=== PATIENT | female | born 1980 | race Caucasian/White ===

== ENCOUNTER 2016-10-26 16:58 | Emergency (ER) | payer OTHER ==
[~2016-10-26] VITALS: Ht 162.6 cm; Wt 73.6 kg
[~2016-10-26 16:58] MED LIST: ALBUTEROL2.5 MG/3 M INH; AMOXICILLIN500 MG PO; DOXYCYCLINE HYC50 MG PO; GUAIATUSSIN AC10 ML PO; HYDROCODON-ACE1 EAC8 PO; PROPRANOLOL HCL20 MG PO; ROBAXIN500 MG PO
== END 2016-10-26 17:17 | disposition home or self-care (01) ==
LOC: ED 16:58
DX: Z00.8 Encounter for other general examination (principal)

== ENCOUNTER 2017-01-01 23:40 | Emergency (ER) | payer OTHER ==
[~2017-01-01] VITALS: Ht 162.6 cm; Wt 70.3 kg
== END 2017-01-02 00:04 | disposition home or self-care (01) ==
LOC: ED 23:40
DX: T63.441A Toxic effect of venom of bees, accidental (unintentional), initial encounter (principal); M79.7 Fibromyalgia; F17.200 Nicotine dependence, unspecified, uncomplicated; Z90.89 Acquired absence of other organs; Z88.5 Allergy status to narcotic agent; Z88.6 Allergy status to analgesic agent; Z79.899 Other long term (current) drug therapy
CPT/HCPCS: 99282; Q0163

== ENCOUNTER 2017-06-16 08:50 | Day surgery (SDC) | payer OTHER ==
[~2017-06-16] VITALS: Ht 162.6 cm; Wt 70.3 kg
--- NOTE | 2017-06-16 13:37 | NUR ---
06/16/17 Sania7 Sweetie Avendano 1333-PATIENT ARRIVED TO PACU ON 6L MASK O2 SAT 100% PATIENT NONAROUSABLE. DRESSING TO UMBILICAL SITE CDI ICE APPLIED. SR
--- NOTE | 2017-06-16 14:50 | NUR ---
1440 PT ARRIVED FROM PACU AWAKE AND ASKED FOR HER PHONE. PT REPORTED PAIN 7/10 AND TOLERABLE AT THIS TIME. PLACED WATER AT BEDSIDE, CALL LIGHT WITHIN REACH. SCD'S ON.
--- NOTE | 2017-06-16 15:49 | NUR ---
PATIENT TOLERATED PUDDING AND WATER. C/O PAIN 01/01. MEDICATED WITH 2 TABS OF NORCO. AND CHILD IN ROOM. CALL LIGHT WITHIN REACH. SCDs ON.
--- NOTE | 2017-06-21 06:10 | OR ---
[facility] [address] [place], [place] [address] Signed DATE OF OPERATION: 06/16/2017 SURGEON: Jeannie Pedraza MD PREOPERATIVE DIAGNOSIS: Umbilical hernia (12 mm). POSTOPERATIVE DIAGNOSIS: Umbilical hernia (12 mm). PROCEDURE: Umbilical herniorrhaphy with intraabdominal Ventralex mesh (6.4 cm). ESTIMATED BLOOD LOSS: None. INDICATIONS: Jolly is a 37-year-old female, who was asked to see me for her umbilical hernia. She has had trouble last six years since the of her last son, Spencer. She said it was easy to push in and out initially, but now it has become more and more difficult. She said when it is stuck, the pain is an 8/10. She finally went to her primary care provider, who asked her to come see me and have it repaired. I gave Jolly a booklet in the office on hernias. We looked at the nature of her umbilical hernia. She understands the difference between the primary suture repair and a mesh repair. There is risk to surgery including, not limited to bleeding, infection, scarring, change in contour of the skin, damage to bowel, infection of mesh, requiring removal, recurrent hernias, and chronic pain. She has expressed understanding and wishes to proceed. PROCEDURE NOTE: Jolly was taken into our operating room and placed in a supine position under general endotracheal tube anesthesia. She was given preoperative antibiotics along with subcutaneous heparin. SCDs were utilized. She was then prepped and draped in the usual sterile fashion. We used the infraumbilical curvilinear incision and carried that down through the tissue bluntly and with the cautery. We excised the hernia sac from the fascial defect and passed it off the field. The fat was reduced into the abdomen. After this, we chose our 6.4 cm round Ventralex mesh and placed that into the abdominal cavity and brought up flushed against the posterior abdominal wall. The fascial defect was closed transversely with a running #1 Prolene suture. Several passes of the suture went through the tab on the mesh to help hold it in place. The tab was then cut flush with the fascia and discarded. Local anesthetic was then copiously injected into the Electronically Signed By: JEANNIE PEDRAZA MD 06/21/17 0610 PATIENT NAME: JOLLY BALL OPERATIVE REPORT DATE OF : 80 REPORT #: [id number] PHYSICIAN: JEANNIE PEDRAZA MD PCP: BERENICE MOYER NP REPORT IS CONFIDENTIAL AND NOT TO BE RELEASED WITHOUT AUTHORIZATION [facility] [address] [place], [place] [address] Signed abdominal wall and subcutaneous tissues. The wound was irrigated and suctioned out until clear. The umbilical skin was held down the midline fascia with an interrupted 2-0 PDS suture. The dermis was then reapproximated with interrupted 3-0 subcuticular Monocryl sutures. Skin edges were reapproximated with running 6-0 fast absorbing plain gut suture. Dry gauze and tape were then applied. Howard was then awakened from her anesthesia, extubated in the OR, and taken to recovery room in stable condition. Jeannie Pedraza MD ALB/MODL /[id number] cc: Berenice Moyer NP Copies: BERENICE MOYER NP ~ Electronically Signed By: JEANNIE PEDRAZA MD 06/21/17 0610 PATIENT NAME: JOLLY BALL OPERATIVE REPORT DATE OF : 80 REPORT #: [id number] PHYSICIAN: JEANNIE PEDRAZA MD PCP: BERENICE MOYER NP REPORT IS CONFIDENTIAL AND NOT TO BE RELEASED WITHOUT AUTHORIZATION
== END 2017-06-16 16:12 | disposition home or self-care (01) ==
LOC: DS 08:50
PROVIDERS: Colon & Rectal Surgery
PROC: 0WUF0JZ Supplement Abdominal Wall with Synthetic Substitute, Open Approach (ICD-10-PCS; principal; 2017-06-16 11:00)
DX: K42.9 Umbilical hernia without obstruction or gangrene (principal); G43.829 Menstrual migraine, not intractable, without status migrainosus; F32.9 Major depressive disorder, single episode, unspecified; M79.7 Fibromyalgia; E04.1 Nontoxic single thyroid nodule; Z88.5 Allergy status to narcotic agent; Z88.8 Allergy status to other drugs, medicaments and biological substances; Z87.891 Personal history of nicotine dependence; Z79.891 Long term (current) use of opiate analgesic
CPT/HCPCS: 00750; 36415; 80048; 85025; C1781; J0690; J1170; J1644; J2250; J2405; J2704; J2765; J3010; J7120

== ENCOUNTER 2019-05-12 11:52 | Emergency (ER) | payer OTHER ==
[~2019-05-12] VITALS: Ht 162.6 cm; Wt 82.5 kg
[2019-05-12] MEDS ORDERED: LOMOTIL TABLET1 EACH PO (14:20)
[2019-05-12] MEDS ORDERED: ONDANSETRON ODT8 MG PO (14:20)
== END 2019-05-12 14:37 | disposition home or self-care (01) ==
LOC: ED 11:52
DX: K52.9 Noninfective gastroenteritis and colitis, unspecified (principal)
CPT/HCPCS: 80053; 85025; 96361; 96374; 99284-25; J2405; J7030

== ENCOUNTER 2019-06-07 09:31 | Emergency (ER) | payer OTHER ==
[~2019-06-07] VITALS: Ht 162.6 cm; Wt 80.3 kg
[~2019-06-07 09:31] MED LIST changes: +LOMOTIL TABLET1 EACH PO; +ONDANSETRON ODT8 MG PO
--- OUTSIDE RECORDS SUMMARY | 2019-06-07 09:34 | XMS ---
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 - 2 Visits in 30 Days CARE PROVIDERS There are no care providers on record at this time. [place] has no Care Guidelines for this patient. [facility] MO[facility] NOTE: Visits indicate total known visits. ED/C VISIT TRACKING (12 MO.) 06/07/2019 09:[address] [facility] OR TYPE: Emergency COMPLAINT: - DIZZINESS, NECK PAIN 05/12/2019 11:53 [facility] TYPE: Emergency COMPLAINT: - UPSET STOMACH/DIARRHEA/NAUSEA DIAGNOSES: - Noninfective gastroenteritis and colitis, unspecified - Diarrhea, unspecified INPATIENT VISIT TRACKING (12 MO.) No inpatient visits to display in this time frame [email or web address]
== END 2019-06-07 10:50 | disposition home or self-care (01) ==
LOC: ED 09:31
DX: R42 Dizziness and giddiness (principal); M54.2 Cervicalgia; Z87.891 Personal history of nicotine dependence; Z88.8 Allergy status to other drugs, medicaments and biological substances; Z88.5 Allergy status to narcotic agent; Z79.891 Long term (current) use of opiate analgesic
CPT/HCPCS: 99283

== ENCOUNTER 2019-11-26 21:03 | Emergency (ER) | payer OTHER ==
[~2019-11-26] VITALS: Ht 162.6 cm; Wt 80.3 kg
[2019-11-26] MEDS ORDERED: CYCLOBENZAPRINE10 MG PO (21:20)
== END 2019-11-26 23:19 | disposition home or self-care (01) ==
LOC: ED 21:03
DX: N93.0 Postcoital and contact bleeding (principal); Z87.891 Personal history of nicotine dependence; Z88.5 Allergy status to narcotic agent; Z88.6 Allergy status to analgesic agent
CPT/HCPCS: 84703; 85025; 87491; 87591; 99284

== ENCOUNTER 2021-10-26 09:30 | Emergency (ER) | payer OTHER ==
[~2021-10-26] VITALS: Ht 162.6 cm; Wt 80.3 kg
[~2021-10-26 09:30] MED LIST changes: +CYCLOBENZAPRINE10 MG PO
--- NOTE | 2021-10-27 11:43 | EKG ---
[facility] [address] [facility] [place] [address] Signed Normal sinus rhythm Possible Anterior infarct , age undetermined Abnormal ECG No previous ECGs available Confirmed by MANNIE LAZO MD ([id number]) on 10/27/2021 11:43:25 AM Electronically Signed By: MANNIE LAZO MD 10/27/21 1143 PATIENT NAME: JOLLY BALL Electrocardiogram DATE OF : 80 PHYSICIAN: MANNIE LAZO MD REPORT #: [id number] REPORT IS CONFIDENTIAL AND NOT TO BE RELEASED WITHOUT AUTHORIZATION
== END 2021-10-26 11:14 | disposition home or self-care (01) ==
LOC: ED 09:30
DX: F41.9 Anxiety disorder, unspecified (principal); Z87.891 Personal history of nicotine dependence; Z88.5 Allergy status to narcotic agent; Z79.891 Long term (current) use of opiate analgesic
CPT/HCPCS: 36415; 71046; 80053; 84484; 85025; 93005; 93010; 99285-25; A9270

== ENCOUNTER 2022-03-25 18:04 | Emergency (ER) | payer OTHER ==
[~2022-03-25] VITALS: Ht 162.6 cm; Wt 81.6 kg
[2022-03-25] MEDS ORDERED: LOMOTIL TABLET1 EACH PO (19:31)
== END 2022-03-25 19:54 | disposition home or self-care (01) ==
LOC: ED 18:04
DX: R19.7 Diarrhea, unspecified (principal); Z87.891 Personal history of nicotine dependence; Z88.5 Allergy status to narcotic agent
CPT/HCPCS: 36415; 80053; 83690; 84703; 85025; 99284

== ENCOUNTER 2022-05-27 13:54 | Emergency (ER) | payer OTHER ==
[~2022-05-27] VITALS: Ht 162.6 cm; Wt 84.8 kg
== END 2022-05-27 18:05 | disposition other institution, planned readmission (95) ==
LOC: ED 13:54
DX: M54.50 Low back pain, unspecified (principal); Z53.21 Procedure and treatment not carried out due to patient leaving prior to being seen by health care provider
CPT/HCPCS: 72100; 72170; 84703

== ENCOUNTER 2023-01-17 19:56 | Emergency (ER) | payer OTHER ==
[~2023-01-17] VITALS: Ht 162.6 cm; Wt 86.0 kg
[~2023-01-17 19:56] MED LIST changes: +AMOX TR-K CLV1 EAC1 PO
[2023-01-17 20:29] LABS: BILIRUBIN, URINE NEGATIVE (negative); BLOOD/HGB, URINE MODERATE (Negative); KETONE, URINE NEGATIVE (Negative); LEUK ESTERASE, URINE NEGATIVE (negative); NITRITE, URINE NEGATIVE (negative); PH, URINE 5.5 (5-7)
[2023-01-17 20:38] LABS: BASOPHILS 2.1 % (0-2); EOSINOPHILS 2.7 % (0-6); HEMATOCRIT 41.2 % (35.0-50.0); HEMOGLOBIN 13.7 g/dL (12.0-18.0); LYMPHOCYTES 25.3 % (24-44); MCH 29.4 (27-36); MCHC 33.2 g/dl (30-36); MCV 88.6 fl (81-99); MONOCYTES 5.1 % (0-12); NEUTROPHILS 64.8 % (39-80); PLATELET COUNT 237 K/uL (140-440); RBC 4.65 M/ul (4.3-5.7); RDW 13.5 (10.5-15.0)
[2023-01-17 20:44] LABS: RED BLOOD CELLS, URINE 0-1 /hpf (0-5); WHITE BLOOD CELLS, URINE 0-1 /HPF (0-5)
[2023-01-17 20:45] LABS: EPITHELIAL CELLS, URINE SQUAMOUS 3+ /lpf (0-1+); REFLEX CULTURE, URINE No (No)
[2023-01-17 20:49] LABS: ALBUMIN 3.7 g/dL (3.4-5.0); ANION GAP 12.4 (7-21); BILIRUBIN, TOTAL 0.2 ng/dL (0.2-1.0); BUN/CREATININE RATIO 16.82 (6.0-28.6); CALCIUM 8.6 mg/dL (8.5-10.1); CREATININE, SERUM 1.07 mg/dL (0.55-1.02); POTASSIUM 3.4 mmol/L (3.5-5.1); PROTEIN, TOTAL 7.4 g/dL (6.4-8.2)
[2023-01-17 22:06] VITALS: BP 119/76
[2023-01-17 22:12] LABS: AMPHETAMINES, UR NEGATIVE (NEGATIVE); BARBITURATES, UR NEGATIVE (NEGATIVE); BENZODIAZEPINES, UR NEGATIVE (NEGATIVE); BUPRENORPHINE,UR NEGATIVE (NEGATIVE); COCAINE, UR NEGATIVE (NEGATIVE); MARIJUANA (THC), UR NEGATIVE (NEGATIVE); MDMA, UR NEGATIVE (NEGATIVE); METHADONE, UR NEGATIVE (NEGATIVE); METHAMPHETAMINE, UR NEGATIVE (NEGATIVE); OPIATES, UR POSITIVE (NEGATIVE); OXYCODONE, UR NEGATIVE (NEGATIVE); PHENCYCLIDINE, UR NEGATIVE (NEGATIVE); TRICYCLIC ANTIDEPRESSANT, UR NEGATIVE (NEGATIVE)
[2023-04-07] MEDS ORDERED: HYDROCODON-ACE1 EA10 PO (16:02)
[2023-04-07] MEDS ORDERED: ACETAMINOPHEN500 MG PO (16:02)
== END 2023-01-17 22:06 | disposition home or self-care (01) ==
LOC: ED 19:56
PROVIDERS: Internal Medicine
DX: N94.6 Dysmenorrhea, unspecified (principal); R10.2 Pelvic and perineal pain; Z87.891 Personal history of nicotine dependence; Z88.5 Allergy status to narcotic agent; Z88.6 Allergy status to analgesic agent; Z79.899 Other long term (current) drug therapy
CPT/HCPCS: 36415; 76830; 76856; 80053; 81001; 83690; 84703; 85025; 96374; 99284-25; G0480; J1885; J7121

== ENCOUNTER 2023-04-15 03:26 | Emergency (ER) | payer OTHER ==
[~2023-04-15] VITALS: Ht 162.6 cm; Wt 81.7 kg
[~2023-04-15 03:26] MED LIST changes: +ACETAMINOPHEN500 MG PO; +HYDROCODON-ACE1 EA10 PO
[2023-04-15 03:56] LABS: RDW 13.3 (10.5-15.0)
[2023-04-15 03:59] LABS: HEMATOCRIT 40.9 % (35.0-50.0); HEMOGLOBIN 13.6 g/dL (12.0-18.0); MCHC 33.2 g/dl (30-36); MCV 87.5 fl (81-99); PLATELET COUNT 265 K/uL (140-440); RBC 4.68 M/ul (4.3-5.7)
[2023-04-15 04:26] LABS: ALBUMIN 3.9 g/dL (3.4-5.0); ALBUMIN/GLOBULIN RATIO 1.11 (1.1-2.4); BILIRUBIN, TOTAL 0.5 ng/dL (0.2-1.0); BUN/CREATININE RATIO 19.49 (6.0-28.6); CALCIUM 8.7 mg/dL (8.5-10.1); CREATININE, SERUM 1.18 mg/dL (0.55-1.02); PROTEIN, TOTAL 7.4 g/dL (6.4-8.2)
[2023-04-15 04:47] LABS: BANDS, MANUAL DIFF 8; LYMPHOCYTES, MANUAL DIFF 2; MONOCYTES, MANUAL DIFF 1; NEUTROPHILS, MANUAL DIFF 89
[2023-04-15 06:12] VITALS: BP 113/76
== END 2023-04-15 06:14 | disposition home or self-care (01) ==
LOC: ED 03:26
PROVIDERS: Internal Medicine
DX: K59.00 Constipation, unspecified (principal); C50.919 Malignant neoplasm of unspecified site of unspecified female breast; Z87.891 Personal history of nicotine dependence; Z88.5 Allergy status to narcotic agent; Z88.6 Allergy status to analgesic agent; Z88.8 Allergy status to other drugs, medicaments and biological substances
CPT/HCPCS: 36415; 51798; 74177; 80053; 83690; 84703; 85025; 96375; 99284-25; J1170; J1790; J7121; Q9967